=== PATIENT | male | born 2000 | race Caucasian/White ===

== ENCOUNTER 2025-05-30 03:21 | Emergency (ER) | payer BC, SELFPAY ==
[2025-05-30 03:25] VITALS: BP 157/100; PULSE 65; TEMP 36.4; O2SAT 99; BMI 32.5
--- NOTE | 2025-05-30 03:38 | ED.BACK1 ---
HPI HPI - Back Pain/Injury General Chief Complaint: Back Pain/Injury Stated Complaint: BACK PAIN/INJURY Time Seen by Provider: 05/30/25 03:27 Source: patient Mode of arrival: walk-in Limitations: no limitations History of Present Illness HPI Narrative: This 24-year-old male with no significant medical history who is mildly overweight but not obese presents for evaluation of low back pain that radiates down both legs and into his testicles. He states he feels like his testicles are being squeezed. He denies any injury to his testicles. He denies any back injury. He states his back has been bothering him for the past 2 weeks but yesterday while walking through [employer] his back pain increased. He has not fallen. He has not had any loss of bowel or bladder control. He denies any weakness or numbness stating he simply has pain. He has used topical lidocaine patches and IcyHot without relief. He denies any chest pain or shortness of breath. He has no abdominal pain. His girlfriend brought him to the emergency department because after getting up for work this morning he was unable to go to work due to the pain. 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 He states he did go to the gym several weeks ago but did not do anything strenuous. He has no nausea or vomiting. He does not have a history of kidney stones. The pain is in the midline lumbar region and goes to the sacral area and into both buttock areas and down his legs. Related Data Home Medications ?Medication ?Instructions ?Recorded ?Confirmed No Known Home Medications 05/30/25 05/30/25 Allergies Allergy/AdvReac Type Severity Reaction Status Date / Time No Known Drug Allergies Allergy Verified 05/30/25 03:27 Opioid HPI Opioid Management Most Recent Opioid Data: Last Pain Scale 10 Today, 03:43 Last MAR Pain Assessment Today, 03:43 Review of Systems ROS Status of ROS 10 or more systems reviewed and unremarkable except as noted in history and below PFSH PFSH Social History Little interest or pleasure in doing things: not at all Feeling down, depressed, or hopeless: not at all Exam Narrative Exam Narrative: Vital signs and Nursing Notes reviewed: Is afebrile with a normal pulse, blood pressure is elevated at 157/100, he is not hypoxic with pulse ox of 99% on room air General: Awake, alert, oriented, nontoxic but uncomfortable appearing male, he is holding himself up on the stretcher with both hands and against a pillow with his back, GCS 15 HEENT: Normocephalic atraumatic, mucous membranes are moist and pink, eyes are clear, normal conjunctiva, vision is grossly intact Chest: Lungs are clear to auscultation with good air entry, there is no wheezing rhonchi or rales appreciated no accessory muscle use, patient is speaking in complete sentences-no chest wall tenderness to palpation CVS: Regular rate and rhythm S1-S2, no murmurs rubs or gallops, pulses are brisk and equal bilaterally ABD: Soft, nondistended, nontender, no rebound guarding or rigidity, bowel sounds are normal, no pulsatile masses appreciated Extremities: Moving all extremities, no lower extremity tenderness or swelling noted, negative Homans' sign, pulses are brisk and equal bilaterally Musc: Tenderness in the mid to lower lumbar region, no skin changes noted in this area, no midline step-off, no appreciable muscle spasm, straight leg raising test is negative bilaterally, patient does not have pain in his back or leg with elevation of the left leg and when I elevate his right leg he states he feels some relief Skin: Normal in appearance without rash,pallor, petechiae or purpura Neuro: No focal deficits, push and pulls of the lower extremity are equal bilaterally. Deep tendon reflexes are equal bilaterally. There is no saddle anesthesia. Constitutional Vital Signs, click to edit/add: Last Vital Signs Temp 97.6 F 05/30/25 03:25 Pulse 65 05/30/25 03:25 Resp 16 05/30/25 04:52 BP 145/78 H 05/30/25 04:52 Pulse Ox 100 05/30/25 04:52 O2 Del Method Room Air 05/30/25 04:52 Course Vital Signs Vital signs: Vital Signs Temperature 97.6 F 05/30/25 03:25 Pulse Rate 65 05/30/25 03:25 Respiratory Rate 18 05/30/25 03:25 Blood Pressure 157/100 H 05/30/25 03:25 Pulse Oximetry 99 05/30/25 03:25 Oxygen Delivery Method Room Air 05/30/25 03:25 Temperature 97.6 F 05/30/25 03:25 Pulse Rate 65 05/30/25 03:25 Respiratory Rate 16 05/30/25 04:52 Blood Pressure 145/78 H 05/30/25 04:52 Pulse Oximetry 100 05/30/25 04:52 Oxygen Delivery Method Room Air 05/30/25 04:52 MDM - Back Pain/Injury MDM Narrative Medical decision making narrative: This 24-year-old male presents for evaluation of low back pain. The patient states he has been having back pain for about 2 weeks but became acutely worse yesterday. He has not had any injury. He does not have a history of IV drug use. He has not had any fever. He does not have any neurologic symptoms related to his pain. The pain does radiate into his buttocks and down his legs and into his testicles. He has some tenderness in the lumbar region without appreciable muscle spasm. His deep tendon reflexes were normal and he has no saddle anesthesia. He was medicated with IM Solu-Medrol, Toradol and Norflex. On reevaluation he states he is feeling better. He is now able to move his legs without back pain. I did order a CT scan and reviewed it. I do not see any acute herniated disks or other notable findings. I explained to the patient that there would be a period of time before the CAT scan would be available but he does not wish to wait for the results. I explained to him that I will leave a copy of the results and registration for him to cherry picker operator later. He will be discharged home with a prescription for Norflex and ibuprofen. He declines any stronger medication such as narcotics. He will be discharged home with his girlfriend who was driving. 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 I called him with the results of his CT scan and left a copy of the CT scan report at registration for him to cherry picker operator if he chooses to. Discharge Plan Discharge Chief Complaint: Back Pain/Injury Clinical Impression: Strain of lumbar region, Low back pain Patient Disposition: Home, Self-Care Time of Disposition Decision: 04:45 Condition: Good Prescriptions / Home Meds: No Action No Known Home Medications Print Language: German Instructions: Low Back Strain (ED), Acute Low Back Pain (ED), Lower Back Exercises (ED) Referrals: John Paul Pearson MD [Primary Care Provider, [facility]] - 1 week Discharge Date/Time: 05/30/25 04:55
[2025-05-30] MEDS: KETOROLAC TROMETHAMINE 60 MG/2 ML VIAL IM (03:43)
[2025-05-30] MEDS: METHYLPREDNISOLONE SOD SUCC PF 125 MG/2 ML VIAL IM (03:44)
[2025-05-30] MEDS: ORPHENADRINE 60 MG/2 ML VIAL IM (03:45)
[2025-05-30 04:52] VITALS: BP 145/78; O2SAT 100
== END 2025-05-30 04:55 | disposition home or self-care (01) ==
PROVIDERS: Emergency Provider Emergency Medicine; PCP Family Medicine
DX: S39.012A Strain of muscle, fascia and tendon of lower back, initial encounter (principal); M54.50 Low back pain, unspecified; X58.XXXA Exposure to other specified factors, initial encounter
CPT/HCPCS: 72131; 76376; 96372; 99284; J1885; J2360; J2919